=== PATIENT | female | born 1965 | race Caucasian/White ===

== ENCOUNTER 2021-03-03 12:39 | Emergency (ER) | payer OTHER, SELFPAY ==
[2021-03-03 12:55] VITALS: BP 126/73; BP 143/84; PULSE 114; PULSE 130; RESP 18; TEMP 37.6; O2SAT 96; O2SAT 99; BMI 24.2
--- NOTE | 2021-03-03 12:59 | ED.PSYCH ---
HPI - Psych General Chief Complaint: Psychiatric Symptoms Stated Complaint: SI Time Seen by Provider: 03/03/21 12:48 Source: patient and EMS Mode of arrival: EMS Limitations: no limitations History of Present Illness HPI Narrative: 55-year-old female with a past medical history of alcohol abuse, anxiety, depression, high cholesterol here with complaints of suicidal thoughts with no plan. Patient tells me she is drinking alcohol daily 10 nips today. Her last drink was yesterday. She left [facility] last week after a interpersonal conflict. Since then she has been drinking daily. She has discontinued all of her medications. She is currently homeless and living on the street. She tells me that her relationships with her family have been impaired due to her drinking. She is interested in getting sectioning and is speaking to her recovery team about this closely. She is also willing to going to detox but feels like a Section 35 would be more helpful for her. Denies additional substance use with the exception of rare cocaine use. Feeling very anxious. No other physical complaints. Related Data Allergies Allergy/AdvReac Type Severity Reaction Status Date / Time shellfish derived Allergy Mild unknown Verified 03/03/21 12:55 Review of Systems Review of Systems: Yes all other systems are reviewed and are negative Constitutional: Constitutional: Reports no additional constitutional complaints, Denies body ache(s), Denies chills, Denies fever(s), Denies headache(s) and Denies weakness Eyes: Eyes: Reports no additional eye complaints and Denies change in vision ENT: Reports system reviewed and no additional complaints, except as documented, Denies dizziness, Denies headache(s), Denies nasal congestion, Denies nasal discharge and Denies neck pain Cardiovascular: Cardiovascular: Reports no additional cardiovascular complaints, Denies chest pain, Denies leg edema and Denies dyspnea Respiratory: Respiratory: Reports no additional respiratory complaints, Denies cough and Denies dyspnea Gastrointestinal: Gastrointestinal: Reports no additional gastrointestinal complaints, Denies abdominal pain, Denies diarrhea, Denies nausea and Denies vomiting Genitourinary: Genitourinary: Reports no additional female genitourinary complaints and Denies urinary incontinence Musculoskeletal: Musculoskeletal: Reports no additional musculoskeletal complaints, Denies back pain, Denies arthralgias, Denies joint swelling, Denies neck pain, Denies numbness and Denies tingling Integumentary/Breasts: Skin/Breast: Reports system reviewed and no additional complaints, except as docu and Denies rash Neurologic: Reports system reviewed and no additional complaints, except as documented, Denies Abnormal speech present, Denies dizziness, Denies headache(s), Denies numbness, Denies tingling and Denies weakness Psychiatric: Psychiatric: Reports anxiety, Reports depression, Denies visual hallucinations, Denies hallucinations, Denies homicidal ideation and Reports suicidal ideation [facility] Past Medical History Attestation statement: The following information was validated with the patient. Source: old records reviewed and nursing notes reviewed Social History Social History Advance Directives: No Patient : No Physical Exam Vital Signs: Vital Signs: Last Vital Signs Temp 99.7 F 03/03/21 12:55 Pulse 117 H 03/03/21 19:53 Resp 18 03/03/21 12:55 BP 138/89 03/03/21 19:53 Pulse Ox 98 03/03/21 19:53 Body Mass Index 24.2 Const: General: cooperative and anxious Orientation/consciousness: patient oriented x3 Limitations: no limitations HENMT: Head: Yes normal to inspection Ears: hearing grossly normal bilaterally General nose exam: Normal external nose present Face and sinus: Yes normal facial exam Mouth: Normal oral and palatal mucosa present Throat: Yes posterior oropharynx normal Eyes: General: appearance normal, both eyes and all related structures Pupils: Equal, round and reactive pupils present Neck: Neck: Yes normal visual inspection Chest: Chest palpation & inspection: normal inspection of the chest Resp: Effort & Inspection: normal respiratory effort Auscultation: clear to auscultation bilaterally Cardio: Rate: tachycardic Rhythm: regular rhythm Peripheral pulses: Peripheral pulses 2+ throughout GI: Inspection: Yes normal to inspection Palpation (GI): Soft to palpation and nontender Auscultation: normal bowel sounds Back/Spine/Pelvis: Thoracic/Lumbar Spine: thoracic and lumbar spine normal to inspection Skin: General skin exam: no rashes or lesions noted Neuro: General: patient oriented x3, no focal motor deficits and normal sensation to monofilament Cranial nerves: Yes Equal, round and reactive pupils present Cognition (Neuro): normal cognition Speech: No Abnormal speech present Gait exam (Neuro): Normal gait present Motor exam (neuro): 5/5 motor strength present throughout Extrem: General: Yes normal to inspection Course Course Course Narrative: 55-year-old female here with complaints of anxiety, depression, suicidal thoughts but no plan. Drinking daily which she contributes to her suicidal thoughts. Seeking detox Will check labs, drug screen, EKG. Tachycardia but patient is very anxious. Will provide Ativan and reassess. No acute withdrawal at this time. 1945-patient was seen by [facility] and plan for discharge home. [facility]. She will be given detox resources. No suicidal ideations when I spoke to her. Reviewed worrisome signs and symptoms of when to return to the emergency department. Comfortable discharge home. [facility] - Psych Medical Records Attestation: I reviewed the patient's medical records. Lab Data Attestation: I reviewed the patient's lab results. Result diagrams: 03/03/21 14:56 03/03/21 14:56 Labs: Lab Results 03/03/21 03/03/21 03/03/21 Range/Units 14:56 14:56 14:56 WBC 13.9 H (4.8-10.8) X10*3/uL RBC 4.55 (4.20-5.50) X10*6/uL Hgb 12.2 (12.0-16.0) g/dl Hct 37.1 (37-47) % MCV 81.5 (80-98) fL MCH 26.8 L (27.0-33.0) pg MCHC 32.9 (31.0-35.0) g/dl RDW 16.9 H (11.0-16.0) % Plt Count 385 (160-400) X10*3/uL MPV 9.0 L (9.4-12.3) fL Immature Gran % (Auto) 0.4 (0.0-0.4) % Neut % (Auto) 85.6 H (45-73) % Lymph % (Auto) 9.9 L (20-40) % [place] % (Auto) 3.8 (2-11) % Eos % (Auto) 0.1 (0-4) % Baso % (Auto) 0.2 (0-2) % Lymph # (Auto) 1.4 (1.2-4.9) X10*3/uL [place] # (Auto) 0.5 (0.1-1.2) X10*3/uL Eos # (Auto) 0.0 (0.0-0.4) X10*3/uL Baso # (Auto) 0.0 (0.0-0.2) X10*3/uL Abs Immat Gran (auto) 0.06 H (0.00-0.03) X10*3/uL Absolute Neuts (auto) 11.9 H (2.0-8.3) X10*3/uL Absolute Nucleated RBC 0.000 (0.0-0.012) X10*3/uL Nucleated RBC % (auto) 0.0 (0.0-0.2) /100WBC Sodium 141 (135-145) mmol/L Potassium 4.4 (3.3-5.1) mmol/L Chloride 102 (96-108) mmol/L Carbon Dioxide 26 (22-29) mmol/L Anion Gap 17 (12-20) BUN 16 (9-16) mg/dL Creatinine 0.76 (0.5-1.4) mg/dL Estim Creat Clear Calc 65.4 Estimated GFR > 60 Random Glucose 107 (60-115) mg/dL Calcium 10.6 H (8.4-10.2) mg/dL Total Bilirubin (0.0-1.0) mg/dL Direct Bilirubin (0.0-0.5) mg/dL AST (5-31) U/L ALT (0-31) U/L Alkaline Phosphatase (39-117) U/L Total Protein (6.5-8.0) g/dL Albumin (3.5-5.0) g/dL Ethyl Alcohol mg/dL COVID-19 (RUI) Negative (Negative) COVID-19 Clin Com See Note 03/03/21 03/03/21 Range/Units 14:56 14:56 WBC (4.8-10.8) X10*3/uL RBC (4.20-5.50) X10*6/uL Hgb (12.0-16.0) g/dl Hct (37-47) % MCV (80-98) fL MCH (27.0-33.0) pg MCHC (31.0-35.0) g/dl RDW (11.0-16.0) % Plt Count (160-400) X10*3/uL MPV (9.4-12.3) fL Immature Gran % (Auto) (0.0-0.4) % Neut % (Auto) (45-73) % Lymph % (Auto) (20-40) % [place] % (Auto) (2-11) % Eos % (Auto) (0-4) % Baso % (Auto) (0-2) % Lymph # (Auto) (1.2-4.9) X10*3/uL [place] # (Auto) (0.1-1.2) X10*3/uL Eos # (Auto) (0.0-0.4) X10*3/uL Baso # (Auto) (0.0-0.2) X10*3/uL Abs Immat Gran (auto) (0.00-0.03) X10*3/uL Absolute Neuts (auto) (2.0-8.3) X10*3/uL Absolute Nucleated RBC (0.0-0.012) X10*3/uL Nucleated RBC % (auto) (0.0-0.2) /100WBC Sodium (135-145) mmol/L Potassium (3.3-5.1) mmol/L Chloride (96-108) mmol/L Carbon Dioxide (22-29) mmol/L Anion Gap (12-20) BUN (9-16) mg/dL Creatinine (0.5-1.4) mg/dL Estim Creat Clear Calc Estimated GFR Random Glucose (60-115) mg/dL Calcium (8.4-10.2) mg/dL Total Bilirubin 0.8 (0.0-1.0) mg/dL Direct Bilirubin 0.4 (0.0-0.5) mg/dL AST 32 H (5-31) U/L ALT 37 H (0-31) U/L Alkaline Phosphatase 122 H (39-117) U/L Total Protein 7.4 (6.5-8.0) g/dL Albumin 4.5 (3.5-5.0) g/dL Ethyl Alcohol < 10 mg/dL COVID-19 (RUI) (Negative) COVID-19 Clin Com Discharge Plan Discharge Clinical Impression: Depression, Acute anxiety, Alcohol abuse Patient Disposition: Home, Self-Care Instructions: Depression (ED), Abuse of Alcohol (ED), Anxiety (ED) Additional Instructions: Go direct to living room Interventions: ED Discharge Assessment Last Done: 03/03/21 20:02 Discharge Date/Time: 03/03/21 20:13
[2021-03-03] MEDS: LORazepam 1 MG TABLET PO (13:16)
--- NOTE | 2021-03-03 14:36 | MHC.RECOVSUP ---
Recovery Support note: Patient is a 55 year old [place] speaking female who presented to [facility] ED via EMS. This director underwriter sales met with patient to discuss substance use and treatment options. Patient reports she has been living on the streets and consuming 10 nips of alcohol a day. Patient reports struggling with anxiety, depression and grief. Patient reports SI thoughts with plan to overdose on medications. Patient reports she was discussing this with her assistant baseball coach and that she was instructed to present to [facility] for a psychiatric admission. Patient reports she did not know that she needed to go to the hospital for a psychiatric admission. Patient reports feelings of hopelessness. Patient stated I feel like everyone would be better off without me. Patient reports her Father in 1992, her in 2011 and her dog two weeks later. Patient reports she has been trying to see a psychiatrist and grief counselor for 6 months to a year. Patient reports she has been to detox before and that it is not the type of help she needs at this time. Patient reports she is seeking help for her mental health. Discussed case with CARE Team. Plan for patient to be evaluated by [facility].
[2021-03-03 15:05] LABS: Basophils Percent Auto 0.2 % (0-2); Eosinophils Percent Auto 0.1 % (0-4); Hematocrit 37.1 % (37-47); Hemoglobin 12.2 g/dl (12.0-16.0); Imm Gran Abs Auto 0.06 X10*3/uL (0.00-0.03); Imm Gran Pct Auto 0.4 % (0.0-0.4); Lymphocytes Absolute Auto 1.4 X10*3/uL (1.2-4.9); Lymphocytes Percent Auto 9.9 % (20-40); MANUAL DIFF FLAG NO; Mean Corpuscular HGB Conc 32.9 g/dl (31.0-35.0); Mean Corpuscular Hemoglobin 26.8 pg (27.0-33.0); Mean Corpuscular Volume 81.5 fL (80-98); Monocytes Absolute Auto 0.5 X10*3/uL (0.1-1.2); Monocytes Percent Auto 3.8 % (2-11); Neutrophils Absolute Auto 11.9 X10*3/uL (2.0-8.3); Neutrophils Percent Auto 85.6 % (45-73); Platelet Count 385 X10*3/uL (160-400); Red Blood Count 4.55 X10*6/uL (4.20-5.50); Red Cell Distribution Width 16.9 % (11.0-16.0); White Blood Count 13.9 X10*3/uL (4.8-10.8)
[2021-03-03 15:19] LABS: COVID-19 Test Negative (Negative)
[2021-03-03 15:20] LABS: Ethanol < 10 mg/dL
[2021-03-03 15:21] LABS: Alanine Aminotransferase 37 U/L (0-31); Albumin Level 4.5 g/dL (3.5-5.0); Alkaline Phosphatase 122 U/L (39-117); Aspartate Amino Transferase 32 U/L (5-31); Bilirubin Direct 0.4 mg/dL (0.0-0.5); Bilirubin Total 0.8 mg/dL (0.0-1.0); Total Protein 7.4 g/dL (6.5-8.0)
[2021-03-03 15:42] LABS: Anion Gap 17 (12-20); Blood Urea Nitrogen 16 mg/dL (9-16); Calcium 10.6 mg/dL (8.4-10.2); Carbon Dioxide 26 mmol/L (22-29); Chloride 102 mmol/L (96-108); Creatinine Clr Calc Pharmacy 65.4; Estimated Glomerular Filt Rate > 60; Glucose Random 107 mg/dL (60-115); Potassium 4.4 mmol/L (3.3-5.1); Sodium 141 mmol/L (135-145)
[2021-03-03 19:53] VITALS: BP 138/89; PULSE 117; O2SAT 98
== END 2021-03-03 20:13 | disposition home or self-care (01) ==
PROVIDERS: Nurse Practitioner Family; Emergency Provider Emergency Medicine; PCP Family Medicine
DX: F32.9 Major depressive disorder, single episode, unspecified (principal); F41.9 Anxiety disorder, unspecified; R45.851 Suicidal ideations; F10.10 Alcohol abuse, uncomplicated; Y90.0 Blood alcohol level of less than 20 mg/100 ml; Z20.822 Contact with and (suspected) exposure to COVID-19; E78.5 Hyperlipidemia, unspecified; Z91.14 Patient's other noncompliance with medication regimen; Z59.0 Homelessness
CPT/HCPCS: 36415; 80048; 80076; 82077; 85025; 87635; 99284; 99285

== ENCOUNTER 2021-10-15 08:21 | Outpatient (REF) | payer OTHER, SELFPAY ==
--- NOTE | ~2021-10-15 | MM_ITS ---
EXAMINATION: MM SCREENING DIGITAL BREAST TOMOSYNTHESIS, BILATERAL CLINICAL INFORMATION: Screening. Asymptomatic. Prior history benign right stereotactic biopsy 08/26/2016 (clip did not deploy). The lifetime risk of breast cancer based on the Tyrer-Cuzick Model is 5%. COMPARISON: Mammography: 03/20/2020, 05/14/2019, 04/27/2018 TECHNIQUE: Digital breast tomosynthesis is performed in both the craniocaudal and mediolateral oblique views along with computer-aided detection (CAD). Synthesized 2D images are generated from the tomosynthesis. Additional right CC view is provided. FINDINGS: There are scattered areas of fibroglandular density (ACR BI-RADS breast composition Category b). There are no significant masses, abnormal calcifications, or other abnormalities. There are scattered bilateral stable asymmetries similar to prior studies. No developing density or interval architectural changes. The axilla and skin contours are unremarkable. MM/MM tomosynthesis screening BI IMPRESSION: No mammographic evidence of malignancy. ASSESSMENT: BI-RADS 2: Benign RECOMMENDATION: Routine annual mammography screening. This patient's information was entered into a reminder system with a target due date for their next mammogram.
== END 2021-10-15 08:22 | disposition home or self-care (01) ==
LOC: HO.MAMMO 08:21
PROVIDERS: Visit Provider Internal Medicine
DX: Z12.31 Encounter for screening mammogram for malignant neoplasm of breast (principal)
CPT/HCPCS: 77063; 77067

== ENCOUNTER 2021-11-14 14:25 | Outpatient (REF) | payer OTHER, SELFPAY ==
[2021-11-14 16:34] LABS: MANUAL DIFF FLAG NO
[2021-11-14 16:39] LABS: Basophils Percent Auto 0.3 % (0-2); Eosinophils Absolute Auto 0.2 X10*3/uL (0.0-0.4); Eosinophils Percent Auto 2.2 % (0-4); Hematocrit 35.1 % (37.0-47.0); Hemoglobin 11.4 g/dl (12.0-16.0); Imm Gran Abs Auto 0.05 X10*3/uL (0.00-0.03); Imm Gran Pct Auto 0.6 % (0.0-0.4); Lymphocytes Absolute Auto 2.2 X10*3/uL (1.2-4.9); Lymphocytes Percent Auto 24.8 % (20-40); Mean Corpuscular HGB Conc 32.5 g/dl (31.0-35.0); Mean Corpuscular Hemoglobin 28.5 pg (27.0-33.0); Mean Corpuscular Volume 87.8 fL (80.0-98.0); Mean Platelet Volume 9.8 fL (9.4-12.3); Monocytes Absolute Auto 0.5 X10*3/uL (0.1-1.2); Monocytes Percent Auto 5.4 % (2-11); Neutrophils Percent Auto 66.7 % (45-73); Platelet Count 379 X10*3/uL (160-400); Red Cell Distribution Width 14.6 % (11.0-16.0)
[2021-11-14 17:22] LABS: Alanine Aminotransferase 18 U/L (0-31); Albumin Level 4.4 g/dL (3.5-5.0); Alkaline Phosphatase 85 U/L (39-117); Anion Gap 13 (12-20); Aspartate Amino Transferase 19 U/L (5-31); Bilirubin Total 0.2 mg/dL (0.0-1.0); Blood Urea Nitrogen 18 mg/dL (9-16); Calcium 10.2 mg/dL (8.4-10.2); Carbon Dioxide 24 mmol/L (22-29); Chloride 106 mmol/L (96-108); Estimated Glomerular Filt Rate 60; Glucose Random 126 mg/dL (60-115); Potassium 4.4 mmol/L (3.3-5.1); Sodium 139 mmol/L (135-145); Total Protein 7.5 g/dL (6.5-8.0)
[2021-11-14 17:34] LABS: Gamma Glutamyl Transpeptidase 21 U/L (7-33)
[2021-11-15 06:21] LABS: HIV AB/AG Nonreactive (Nonreactive); HIV Num 1 0.07 S/CO (0.00-0.99); ~HepC Num1 10.61 S/CO (0.00-0.79); ~Hepatitis C Antibody Reactive (Nonreactive)
[2021-11-16 05:11] LABS: Hepatitis A Antibody IgG Nonreactive (Nonreactive); ~Hepatitis A Antibody IgG 0.83 S/CO (0.00-0.99)
[2021-11-18 23:26] LABS: HCV RNA PCR Qn <1.18 NOT DETECTED Log IU/mL (NOT DETECTED); HCV RNA PCR Qn <15 NOT DETECTED IU/mL (NOT DETECTED)
== END 2021-11-14 14:26 | disposition home or self-care (01) ==
LOC: HO.HMGCLDS 14:25
PROVIDERS: Visit Provider Registered Nurse
DX: Z11.4 Encounter for screening for human immunodeficiency virus [HIV] (principal); F11.20 Opioid dependence, uncomplicated
CPT/HCPCS: 36415; 80053; 82977; 85025; 86708; 86803; 87389; 87522; 87902

== ENCOUNTER 2021-11-22 19:55 | Emergency (ER) | payer OTHER, SELFPAY ==
--- NOTE | ~2021-11-22 | CT_ITS ---
EXAMINATION: CT ABDOMEN AND PELVIS WITHOUT CONTRAST CLINICAL INFORMATION: Pain to abdominal hernia COMPARISON: None TECHNIQUE: Multidetector volumetric imaging was performed from the superior aspect of the liver through the pubic symphysis. Sagittal and coronal reformatted images were obtained on the technologist's workstation. This CT examination was performed using dose optimization techniques as appropriate, variously including the following: *Automated exposure control *Adjustment of mA and/or kV according to patient size (this includes techniques or standardized protocols for targeted exams where dose is matched to indication/reason for exam; i.e. extremities or head) *Use of iterative reconstruction technique DLP: 447 mGy-cm FINDINGS: The lack of intravenous contrast limits evaluation of the solid visceral organs including the liver, spleen, pancreas, and kidneys. LUNG BASES: Heart size upper limits of normal. Mild bibasilar atelectasis. No focal consolidation. Trace pericardial fluid. No pleural effusion. LIVER, GALLBLADDER, AND BILIARY TREE: Limited non-contrast evaluation is normal. No gross focal hepatic lesion. Normal liver size and contour. No gross biliary ductal dilation. The gallbladder is unremarkable with no evidence of radiopaque gallstones, gallbladder wall thickening, or obvious pericholecystic inflammatory changes. PANCREAS: Limited non-contrast evaluation is normal. No agnieszka-pancreatic fluid. SPLEEN: Limited non-contrast evaluation is normal. ADRENAL GLANDS: Normal; no adrenal mass. KIDNEYS AND URETERS: Limited non-contrast evaluation is normal. No hydronephrosis, hydroureter, or calculi seen. No perinephric stranding. GASTROINTESTINAL TRACT: Small bowel and colon are non-dilated. No bowel wall thickening. No pericolonic inflammatory changes to suggest colitis or diverticulitis. No evidence of appendicitis. ABDOMINAL WALL: Tiny fat-containing umbilical hernia. There are several areas of abnormality in the buttocks. There is lobular fluid density in the left buttock measuring 3.6 x 2.8 cm. Medial to this there is a coarse calcification. In the right buttock there is an irregular area of fluid, fat stranding, gas and high density material. No IV contrast was administered so this does not represent extravasated IV contrast. LYMPH NODES: No pathologically enlarged lymph nodes in the abdomen or pelvis. VASCULAR: Normal caliber aorta with moderate nearly circumferential calcified atherosclerotic changes. BLADDER: Unremarkable. PELVIC VISCERA: Normal noncontrast appearance of the uterus and ovaries. OSSEOUS STRUCTURES: No acute or suspicious osseous abnormalities. CT/CT abdomen pelvis wo con IMPRESSION: There are multiple findings in the bilateral buttocks, nonspecific. There is fluid and calcification in the left buttock with an irregular area of fluid, gas, and high density material in the right buttock. These findings could be seen in the setting of subcutaneous injections with a recent injection of the right buttock accounting for the gas. Alternatively, trauma could be considered. The right gluteal gas does not have the expected appearance for infection but infection cannot be excluded. The findings and recommendations were discussed with CLOVER Burnett MD by telephone at 11/22/2021 11:27 PM and it was ascertained that the content and urgency of the report was understood at the time of direct communication.
[2021-11-22 19:58] VITALS: BP 130/80; PULSE 96; O2SAT 95
[2021-11-22 20:08] VITALS: BP 90/65; PULSE 91; RESP 18; TEMP 36.9; O2SAT 95; BMI 26.9
--- NOTE | 2021-11-22 21:23 | ED_ITS ---
HPI - Alcohol General Chief Complaint: ETOH/Substance Use <CLOVER Burnett - Last Filed: 11/23/21 01:11> Stated Complaint: ETOH <CLOVER Burnett Last Filed: 11/23/21 01:11> Time Seen by Provider: 11/22/21 21:23 <CLOVER Burnett Last Filed: 11/23/21 01:11> Source: patient <CLOVER Burnett - Last Filed: 11/23/21 01:11> Mode of arrival: ambulatory <CLOVER Burnett Last Filed: 11/23/21 01:11> Limitations: no limitations <CLOVER Burnett Last Filed: 11/23/21 01:11> History of Present Illness HPI narrative: This is a 56-year-old female history of alcohol abuse presenting to the emergency department with acute alcohol intoxication, patient tells me that she was recently at the [facility] in [place] which is a recovery house. Patient tells me that she left she had 6 nips of fireball today, and relapse. Patient is requesting that she go back to the house. She tells me she spoke to the house was willing to take her back after she gets medically cleared. Patient tells me she has a known abdominal hernia that has been bothering her for the past 2-3 days that she would like evaluated. Patient tells me she denies chest pain, shortness of breath, fevers, chills, nausea, vomiting, weakness, headache, dizziness. No recent trauma. <CLOVER Burnett Last Filed: 11/23/21 01:11> MD complaint: alcohol intoxication, alcohol dependence and desires rehab <CLOVER Burnett Last Filed: 11/23/21 01:11> Last drink: Just prior to admission <CLOVER Burnett Last Filed: 11/23/21 01:11> Chronic alcohol use: Yes <CLOVER Burnett Last Filed: 11/23/21 01:11> Previous visits for alcohol intoxication: No <CLOVER Burnett Last Filed: 11/23/21 01:11> Recent trauma: Yes <CLOVER Burnett Last Filed: 11/23/21 01:11> Associated symptoms: denies other symptoms <CLOVER Burnett Last Filed: 11/23/21 01:11> Treatments prior to arrival: none <CLOVER Burnett Last Filed: 11/23/21 01:11> Related Data Allergies/Adverse Reactions: Allergies Allergy/AdvReac Type Severity Reaction Status Date / Time shellfish derived Allergy Mild unknown Verified 11/22/21 20:07 <CLOVER Burnett Last Filed: 11/23/21 01:11> Review of Systems Review of Systems: Constitutional : No Weight loss, No Fever, No Chills, No Fatigue, No Malaise ENT/Mouth : No sore throat, No Rhinorrhea Eyes: No Eye Pain, No Swelling, No Redness Cardiovascular : No Chest Pain, No SOB, No Dyspnea on Exertion, No Orthopnea, No Edema, No Palpitations Respiratory : No Cough, No Sputum, No Wheezing Gastrointestinal : No Nausea, No Vomiting, No Diarrhea, No Constipation, No a bdominal Pain, No Hematochezia, No Melena Genitourinary : No Dysuria, No Urinary Frequency, No Hematuria, Musculoskeletal : No joint pain, No Myalgias, No Joint Swelling Skin : No Skin Lesions, No rash Neuro : No Weakness, No Numbness, No Dizziness, No Headache Psych : No Anxiety/Panic, No Depression All other systems reviewed and are negative <CLOVER Burnett Last Filed: 11/23/21 01:11> Yes all other systems are reviewed and are negative <CLOVER Burnett - Last Filed: 11/23/21 01:11> [facility] Past Medical History Attestation statement: The following information was validated with the patient. <CLOVER Burnett Last Filed: 11/23/21 01:11> Source: old records reviewed and nursing notes reviewed <CLOVER Burnett Last Filed: 11/23/21 01:11> Social History Social History: Social History Advance Directives: No Advance Directives Information Provided: No <CLOVER Burnett - Last Filed: 11/23/21 01:11> Physical Exam ED Vital Signs: Vital Signs - 24 hr 11/22/21 20:08 11/22/21 22:00 11/22/21 23:48 Temperature 98.5 F 97.8 F 97.0 F Pulse Rate 91 72 64 Respiratory Rate 18 16 16 Blood Pressure 90/65 110/56 L 109/70 Pulse Oximetry 95 98 97 BMI result Body Mass Index 26.9 Vital signs stable <CLOVER Burnett Last Filed: 11/23/21 01:11> Appearance: Alert.? Oriented X3.? No acute distress.? Head: Normocephalic, atraumatic, no step-offs or deformities Eyes: Pupils equal, round and reactive to light.? ENT: Pharynx normal.? No tongue fasciculations. Neck: Normal inspection.? Neck supple.? CVS: Normal heart rate and rhythm.? Pulses normal.? Respiratory: No respiratory distress.? Breath sounds normal.? Abdomen: Soft and nontender.? Skin: Skin warm and dry.? Normal skin color.? Normal skin turgor.? Buttocks: bilateral buttocks within normal limits, no overlying skin changes, no pain with palpation, no crepitus noted, no erythema or ecchymosis. There is a Band-Aid applied to the right buttocks were patient received her Vivitrol injection yesterday. Extremities: No lower extremity edema.? No calf ttp. 5/5 strength to bilateral upper and lower extremities. No asterixis. No resting tremors. Back: No midline tenderness, no C-spine tenderness, full range of motion, no CVA tenderness bilaterally Neuro: Oriented X 3.? No motor deficit.? No sensory deficit. CN 2-12 intact <CLOVER Burnett Last Filed: 11/23/21 01:11> Course Reevaluation(s) Reevaluation #1: CBC appears to be around patient's baseline. Chemistry with no acute findings. Ethanol level 153. COVID negative. CT of the abdomen and pelvis with nonspecific findings in the biotics, others fluid and calcifications in the left buttocks with an irregular area of fluid, gas and high density material in the right buttocks. Patient tells me that she receives Vivitrol shots, her last 1 was yesterday. No overlying redness, swelling or crepitus to the area. I do not suspect infection at this time. Discussed w/ Dr. Roberto who agrees with this is likely secondary to Vivitrol injections. <CLOVER Burnett - Last Filed: 11/23/21 01:11> Time: 01:02 <CLOVER Burnett - Last Filed: 11/23/21 01:11> Reevaluation #2: Patient has not given us a urine sample however despite these urine is else at this time patient has been medically cleared and she can return back to [facility]. Advised patient to return with new or worsening symptoms. Outlined he is on her discharge. Comfortable discharge home. Time of discharge patient awake, alert and oriented x4, no acute distress, stable vital signs, appears comfortable and in no acute distress. She has no medical complaints denies chest pain, shortness of breath, headache, dizziness, vision changes. <CLOVER Burnett - Last Filed: 11/23/21 01:11> Time: 01:07 <CLOVER Burnett - Last Filed: 11/23/21 01:11> MDM - Alcohol MDM Narrative Medical decision making narrative: [id number] 56-year-old female presents to the emergency department requesting to go to [facility] in [place], she was recently discharged from there and she called and she would like to go back. They tell her that they have a bed for her. Here for medical clearance. Reports drinking shots prior to arrival. Physical examination benign. No signs of autonomic dysfunction, no signs of hepatic encephalopathy. Patient's smells like alcohol however. Regular rate and rhythm. Lungs clear. Abdomen soft nontender nondistended. Neuro exam is nonfocal. Plan at this time is medical clearance. Patient does report pain to hernia she says it has been going on for 2-3 days will obtain a CT of the abdomen and pelvis to rule out incarceration although unlikely from physical exam findings. <CLOVER Burnett Last Filed: 11/23/21 01:11> Medical Records Attestation: I reviewed the patient's medical records. <CLOVER Burnett - Last Filed: 11/23/21 01:11> Lab Data Attestation: I reviewed the patient's lab results. <CLOVER Burnett - Last Filed: 11/23/21 01:11> Result diagrams: : 11/22/21 21:57 11/22/21 21:57 <CLOVER Burnett - Last Filed: 11/23/21 01:11> Labs: Lab Results 11/22/21 11/22/21 11/22/21 Range/Units 21:57 21:57 21:57 WBC 7.0 (4.8-10.8) X10*3/uL RBC 4.04 L (4.20-5.50) X10*6/uL Hgb 11.7 L (12.0-16.0) g/dl Hct 34.9 L (37.0-47.0) % MCV 86.4 (80.0-98.0) fL MCH 29.0 (27.0-33.0) pg MCHC 33.5 (31.0-35.0) g/dl RDW 14.2 (11.0-16.0) % Plt Count 361 (160-400) X10*3/uL MPV 8.9 L (9.4-12.3) fL Immature Gran % (Auto) 0.3 (0.0-0.4) % Neut % (Auto) 56.7 (45-73) % Lymph % (Auto) 36.4 (20-40) % [place] % (Auto) 5.0 (2-11) % Eos % (Auto) 1.0 (0-4) % Baso % (Auto) 0.6 (0-2) % Lymph # (Auto) 2.5 (1.2-4.9) X10*3/uL [place] # (Auto) 0.4 (0.1-1.2) X10*3/uL Eos # (Auto) 0.1 (0.0-0.4) X10*3/uL Baso # (Auto) 0.0 (0.0-0.2) X10*3/uL Abs Immat Gran (auto) 0.02 (0.00-0.03) X10*3/uL Absolute Neuts (auto) 4.0 (2.0-8.3) x10*3/uL Absolute Nucleated RBC 0.000 (0.0-0.012) X10*3/uL Nucleated RBC % (auto) 0.0 (0.0-0.2) /100WBC Sodium 142 (135-145) mmol/L Potassium 3.9 (3.3-5.1) mmol/L Chloride 108 (96-108) mmol/L Carbon Dioxide 21 L (22-29) mmol/L Anion Gap 17 (12-20) BUN 9 (9-16) mg/dL Creatinine 0.84 (0.5-1.4) mg/dL Estim Creat Clear Calc 61.0 Estimated GFR > 60 Random Glucose 102 (60-115) mg/dL Calcium 9.5 D (8.4-10.2) mg/dL Total Bilirubin 0.2 (0.0-1.0) mg/dL AST 21 (5-31) U/L ALT 18 (0-31) U/L Alkaline Phosphatase 77 (39-117) U/L Total Protein 7.5 (6.5-8.0) g/dL Albumin 4.5 (3.5-5.0) g/dL Lipase 62 (8-78) U/L Ethyl Alcohol mg/dL COVID-19 (RUI) Negative (Negative) COVID-19 Clin Com See Note 11/22/21 Range/Units 21:57 WBC (4.8-10.8) X10*3/uL RBC (4.20-5.50) X10*6/uL Hgb (12.0-16.0) g/dl Hct (37.0-47.0) % MCV (80.0-98.0) fL MCH (27.0-33.0) pg MCHC (31.0-35.0) g/dl RDW (11.0-16.0) % Plt Count (160-400) X10*3/uL MPV (9.4-12.3) fL Immature Gran % (Auto) (0.0-0.4) % Neut % (Auto) (45-73) % Lymph % (Auto) (20-40) % [place] % (Auto) (2-11) % Eos % (Auto) (0-4) % Baso % (Auto) (0-2) % Lymph # (Auto) (1.2-4.9) X10*3/uL [place] # (Auto) (0.1-1.2) X10*3/uL Eos # (Auto) (0.0-0.4) X10*3/uL Baso # (Auto) (0.0-0.2) X10*3/uL Abs Immat Gran (auto) (0.00-0.03) X10*3/uL Absolute Neuts (auto) (2.0-8.3) x10*3/uL Absolute Nucleated RBC (0.0-0.012) X10*3/uL Nucleated RBC % (auto) (0.0-0.2) /100WBC Sodium (135-145) mmol/L Potassium (3.3-5.1) mmol/L Chloride (96-108) mmol/L Carbon Dioxide (22-29) mmol/L Anion Gap (12-20) BUN (9-16) mg/dL Creatinine (0.5-1.4) mg/dL Estim Creat Clear Calc Estimated GFR Random Glucose (60-115) mg/dL Calcium (8.4-10.2) mg/dL Total Bilirubin (0.0-1.0) mg/dL AST (5-31) U/L ALT (0-31) U/L Alkaline Phosphatase (39-117) U/L Total Protein (6.5-8.0) g/dL Albumin (3.5-5.0) g/dL Lipase (8-78) U/L Ethyl Alcohol 153 mg/dL COVID-19 (RUI) (Negative) COVID-19 Clin Com <CLOVER Burnett - Last Filed: 11/23/21 01:11> Critical Care Time Critical Care Time Critical Care Time: No <CLOVER Burnett - Last Filed: 11/23/21 01:11> Discharge Plan Discharge Clinical Impression: Alcoholic intoxication, Abdominal pain <CLOVER Burnett Last Filed: 11/23/21 01:11> Patient Disposition: Home, Self-Care <CLOVER Burnett Last Filed: 11/23/21 01:11> Instructions: Alcohol Intoxication (ED), Abdominal Pain (ED), Alcohol Use Disorder (ED) <CLOVER Burnett - Last Filed: 11/23/21 01:11> Additional Instructions: Take your medications as prescribed. If you were prescribed antibiotics today, it is important that you take your medication to their entirety, do not skip any doses, do not finish them early. Follow-up with your primary care provider this week. Return to the emergency department with new or worsening symptoms. Such as fevers, chills, chest pain, shortness of breath, nausea, vomiting, dizziness, headache, vision changes, lethargy, pain or swelling care buttock. In case of emergency call 911 At this time patient medically cleared. Advised to return with new or worsening symptoms. CT/CT abdomen pelvis wo con IMPRESSION: There are multiple findings in the bilateral buttocks, nonspecific. There is fluid and calcification in the left buttock with an irregular area of fluid, gas, and high density material in the right buttock. These findings could be seen in the setting of subcutaneous injections with a recent injection of the right buttock accounting for the gas. Alternatively, trauma could be considered. The right gluteal gas does not have the expected appearance for infection but infection cannot be excluded. <CLOVER Burnett - Last Filed: 11/23/21 01:11> Referrals: Physician,Ben J [Primary Care Provider] - 2 days <CLOVER Burnett - Last Filed: 11/23/21 01:11> Interventions: ED Discharge Assessment Last Done: 11/23/21 01:47 <CLOVER Burnett - Last Filed: 11/23/21 01:11> Discharge Date/Time: 11/23/21 01:47 <CLOVER Burnett - Last Filed: 11/23/21 01:11>
[2021-11-22 22:00] VITALS: BP 110/56; PULSE 72; RESP 16; TEMP 36.6; O2SAT 98
[2021-11-22 22:02] LABS: MANUAL DIFF FLAG NO
[2021-11-22 22:03] LABS: Basophils Percent Auto 0.6 % (0-2); Eosinophils Absolute Auto 0.1 X10*3/uL (0.0-0.4); Hematocrit 34.9 % (37.0-47.0); Hemoglobin 11.7 g/dl (12.0-16.0); Imm Gran Abs Auto 0.02 X10*3/uL (0.00-0.03); Imm Gran Pct Auto 0.3 % (0.0-0.4); Lymphocytes Absolute Auto 2.5 X10*3/uL (1.2-4.9); Lymphocytes Percent Auto 36.4 % (20-40); Mean Corpuscular HGB Conc 33.5 g/dl (31.0-35.0); Mean Corpuscular Volume 86.4 fL (80.0-98.0); Mean Platelet Volume 8.9 fL (9.4-12.3); Monocytes Absolute Auto 0.4 X10*3/uL (0.1-1.2); Neutrophils Percent Auto 56.7 % (45-73); Platelet Count 361 X10*3/uL (160-400); Red Blood Count 4.04 X10*6/uL (4.20-5.50); Red Cell Distribution Width 14.2 % (11.0-16.0)
[2021-11-22 22:17] LABS: COVID-19 Test Negative (Negative)
[2021-11-22 22:21] LABS: Ethanol 153 mg/dL
[2021-11-22 22:25] LABS: Alanine Aminotransferase 18 U/L (0-31); Albumin Level 4.5 g/dL (3.5-5.0); Alkaline Phosphatase 77 U/L (39-117); Anion Gap 17 (12-20); Aspartate Amino Transferase 21 U/L (5-31); Bilirubin Total 0.2 mg/dL (0.0-1.0); Blood Urea Nitrogen 9 mg/dL (9-16); Calcium 9.5 mg/dL (8.4-10.2); Carbon Dioxide 21 mmol/L (22-29); Chloride 108 mmol/L (96-108); Estimated Glomerular Filt Rate > 60; Glucose Random 102 mg/dL (60-115); Potassium 3.9 mmol/L (3.3-5.1); Sodium 142 mmol/L (135-145); Total Protein 7.5 g/dL (6.5-8.0)
[2021-11-22 23:48] VITALS: BP 109/70; PULSE 64; RESP 16; TEMP 36.1; O2SAT 97
[2021-11-23 01:23] LABS: Lipase 62 U/L (8-78)
--- NOTE | 2021-11-23 01:46 | PC.NURSE ---
Discharged pt to [facility] transport to [facility]. Throughout her ER visit she remained asleep, wakeful to verbal stimuli, oriented x 3 while awake. SHe took PO food and fluids without difficulty and ambulated to and from the bathroom independently and with steady gait.
== END 2021-11-23 01:47 | disposition home or self-care (01) ==
PROVIDERS: Physician Assistant; Emergency Provider Emergency Medicine
DX: F10.129 Alcohol abuse with intoxication, unspecified (principal); Y90.6 Blood alcohol level of 120-199 mg/100 ml; R10.9 Unspecified abdominal pain; Z20.822 Contact with and (suspected) exposure to COVID-19
CPT/HCPCS: 74176; 80053; 82077; 83690; 85025; 87635; 99282; 99284

== ENCOUNTER 2022-01-09 15:30 | Emergency (ER) | payer OTHER, SELFPAY ==
--- NOTE | 2022-01-09 16:05 | PC.NURSE ---
called x 3 in wr and outside. no answer. LWT
== END 2022-01-09 16:14 | disposition left against medical advice (07) ==
PROVIDERS: Emergency Provider Emergency Medicine
DX: Z02.83 Encounter for blood-alcohol and blood-drug test (principal)

== ENCOUNTER 2022-01-09 17:48 | Emergency (ER) | payer OTHER, SELFPAY ==
[2022-01-09 17:53] VITALS: BP 128/73; PULSE 116; RESP 18; TEMP 37.1; O2SAT 94; BMI 29.2
--- NOTE | 2022-01-09 17:56 | PC.NURSE ---
pt states HR is due to anxiety. Denies CP/SOB/Diff breathing/ feeling of near syncope.
--- NOTE | 2022-01-09 18:03 | ECG_ITS ---
Test Reason : TACHYCARDIA Blood Pressure : / mmHG Vent. Rate : 109 BPM Atrial Rate : 109 BPM P-R Int : 148 ms QRS Dur : 080 ms QT Int : 338 ms P-R-T Axes : 072 076 054 degrees QTc Int : 455 ms Sinus tachycardia Otherwise normal ECG No previous ECGs available Referred By: Generic ED Physician Electronically Signed By:Reddy Gallagher
--- NOTE | 2022-01-09 18:12 | PC.NURSE ---
PT keeps leaving ed to go outside. Multiple attempts have been made to draw labs.
[2022-01-09 18:34] LABS: MANUAL DIFF FLAG NO
[2022-01-09 18:35] LABS: Basophils Absolute Auto 0.1 X10*3/uL (0.0-0.2); Basophils Percent Auto 0.6 % (0-2); Eosinophils Absolute Auto 0.1 X10*3/uL (0.0-0.4); Eosinophils Percent Auto 1.1 % (0-4); Hematocrit 39.7 % (37.0-47.0); Hemoglobin 13.2 g/dl (12.0-16.0); Imm Gran Abs Auto 0.04 X10*3/uL (0.00-0.03); Imm Gran Pct Auto 0.4 % (0.0-0.4); Lymphocytes Percent Auto 33.2 % (20-40); Mean Corpuscular HGB Conc 33.2 g/dl (31.0-35.0); Mean Corpuscular Hemoglobin 28.9 pg (27.0-33.0); Mean Corpuscular Volume 86.9 fL (80.0-98.0); Mean Platelet Volume 9.4 fL (9.4-12.3); Monocytes Absolute Auto 0.5 X10*3/uL (0.1-1.2); Monocytes Percent Auto 5.2 % (2-11); Neutrophils Absolute Auto 5.4 x10*3/uL (2.0-8.3); Neutrophils Percent Auto 59.5 % (45-73); Platelet Count 453 X10*3/uL (160-400); Red Blood Count 4.57 X10*6/uL (4.20-5.50); Red Cell Distribution Width 13.4 % (11.0-16.0); White Blood Count 9.1 X10*3/uL (4.8-10.8)
[2022-01-09 18:43] LABS: Appearance Urine CLEAR; Color Urine YELLOW; Glucose Urine UA NEG (NEG); Leukocyte Esterase Urine 1+ (NEG); Nitrite Urine NEG (NEG); Specific Gravity - Urine <= 1.005 (1.005-1.025); UACC Culture Trigger YES; Urine Blood NEG (NEG); Urine Ketones NEG (NEG); Urine Protein NEG (NEG-TRACE)
[2022-01-09 18:44] LABS: UPreg QC Valid YES; Urine Pregnancy NEGATIVE (NEGATIVE)
[2022-01-09 18:52] LABS: Alanine Aminotransferase 61 U/L (0-31); Albumin Level 5.2 g/dL (3.5-5.0); Alkaline Phosphatase 87 U/L (39-117); Amphetamine Screen Urine Not Detected (Not Detect); Anion Gap 15 (12-20); Aspartate Amino Transferase 55 U/L (5-31); Barbiturates, Urine Not Detected (Not Detect); Benzodiazepines Screen Urine Not Detected (Not Detect); Bilirubin Total 0.2 mg/dL (0.0-1.0); Blood Urea Nitrogen 10 mg/dL (9-16); COVID-19 Test Negative (Negative); Cannabinoid Screen Urine Not Detected (Not Detect); Carbon Dioxide 26 mmol/L (22-29); Chloride 108 mmol/L (96-108); Cocaine Screen Urine Not Detected (Not Detect); Creatinine Clr Calc Pharmacy 53.4; Estimated Glomerular Filt Rate 57; Ethanol 199 mg/dL; Fentanyl, urine Not Detected (Not Detect); Glucose Random 112 mg/dL (60-115); Opiate Screen Urine Not Detected (Not Detect); Phencyclidine Screen Urine Not Detected (Not Detect); Potassium 4.2 mmol/L (3.3-5.1); Sodium 145 mmol/L (135-145); Total Protein 8.3 g/dL (6.5-8.0)
[2022-01-09 18:56] LABS: WBC Urine 0-2 /HPF (0-4)
[2022-01-09 18:57] LABS: RBC Urine 0-2 /HPF (0); Squamous Epithelial Cell Urine TRACE /LPF
[2022-01-09 18:59] LABS: Bacteria Urine TRACE /LPF
== END 2022-01-09 22:16 | disposition left against medical advice (07) ==
PROVIDERS: Emergency Provider Emergency Medicine
DX: R00.0 Tachycardia, unspecified (principal); R79.89 Other specified abnormal findings of blood chemistry; Z20.822 Contact with and (suspected) exposure to COVID-19; Z79.899 Other long term (current) drug therapy
CPT/HCPCS: 80053; 80307; 81001; 81025; 82077; 85025; 87086; 87635; 93005; 99283

== ENCOUNTER 2022-03-11 17:27 | Emergency (ER) | payer OTHER, SELFPAY ==
--- NOTE | 2022-03-11 17:45 | ED_ITS ---
HPI - Overdose General Chief Complaint: Overdose Stated Complaint: HEROIN OD Source: patient and EMS Mode of arrival: EMS Limitations: no limitations History of Present Illness HPI Narrative: 56-year-old female presents via EMS for overdose. Stated this is the 1st time she has ever used heroin, lost consciousness, and her friend administered Narcan and called 911. Patient does not have a prior history of heroin use, states that she is not suicidal or homicidal. She is not interested in detox at this time, and states to have no medical complaints at this time. complaint: accidental overdose Onset (ago): hour(s) (Within the hour of arrival) Context: Accidental Overdose: wanted to get high Associated symptoms: depression Treatments Prior to Arrival: narcan Related Data Allergies Allergy/AdvReac Type Severity Reaction Status Date / Time shellfish derived Allergy Mild unknown Verified 11/22/21 20:07 Review of Systems Review of Systems: Constitutional: No Fever, No Chills ENT/Mouth: No Ear Pain, No Hoarseness, No sore throat Eyes: No Eye Pain, No Swelling, No Redness, No Foreign Body Cardiovascular: No Chest Pain, No SOB Respiratory: No Cough, No Dyspnea Gastrointestinal: No Nausea, No Vomiting, No Diarrhea, No abdominal Pain Genitourinary: No Dysuria, No Hematuria Musculoskeletal: No joint pain, No Myalgias, No Joint Swelling Skin: No Skin lacerations, No rash Neuro: No Weakness, No Numbness, No Paresthesias, No Loss of Consciousness, No Dizziness, No Headache Psych: Positive heroin overdose, No Anxiety/Panic, positive Depression Heme/Lymph: no easy bruising, no Lymphadenopathy Endocrine: No Polyuria, No Polydipsia Yes all other systems are reviewed and are negative FOR[facility]LY [facility] Past Medical History Attestation statement: The following information was validated with the patient. Source: old records reviewed Social History Social History Advance Directives: No Advance Directives Information Provided: No Physical Exam Vital Signs: Vital Signs: Last Vital Signs Temp 97.2 F 03/11/22 19:58 Pulse 68 03/11/22 19:58 Resp 16 03/11/22 19:58 BP 111/62 03/11/22 19:58 Pulse Ox 98 03/11/22 19:58 O2 Del Method 03/11/22 19:58 BMI result Body Mass Index 23.4 Appearance: Alert. Oriented X3. No acute distress. Eyes: Pupils equal, round and reactive to light. ENT: Pharynx normal. Neck: Normal inspection. Neck supple. CVS: Normal heart rate and rhythm. Pulses normal. Respiratory: No respiratory distress. Breath sounds normal. Abdomen: Soft and nontender. Skin: Skin warm and dry. Normal skin color. Normal skin turgor. Extremities: No lower extremity edema. Moves all extremities against resistance. Neuro: No motor deficit. No sensory deficit. Cranial nerves 2-12 intact. Course Course Course Narrative: 56-year-old female presents via EMS for heroin overdose, was given Narcan prior to arrival by a bystander. Patient states that this is the 1st time she has ever used heroin, was not trying to overdose, and has not been drinking alcohol. She does have a history of EtOH abuse and anxiety. Patient is alert oriented x4, answering questions politely and appropriately, denies suicidal and homicidal ideations, and following directions. Patient is not interested in detox. 17:35 patient states that she is doing well, is still tired, would like to sleep a bit more. Even unlabored respirations, answering questions politely and appropriately, arousable to verbal stimulation. 18:50 care team consult, plan of care is to discharge home as patient is not suicidal, homicidal, and is not interested in detox. Will discharge home with Narcan. Patient continues to be alert oriented x4, answering questions politely and appropriately, even unlabored respirations, able to follow directions without difficulty. Patient verbalized understanding of and agrees to plan of care. Verbalized understanding of signs symptoms indicating need for emergent intervention. MDM - Overdose Differential Diagnosis Differential diagnosis: Likely drug overdose Medical Records Attestation: I reviewed the patient's medical records. Discharge Plan Discharge Clinical Impression: Drug overdose Patient Disposition: Home, Self-Care Instructions: Adult Overdose (ED) Additional Instructions: Please consider detox. Thank you for choosing this emergency department for evaluation. Please follow-up with primary care physician as needed. Return to the emergency dep artment for any new, concerning, or worsening symptoms. Interventions: ED Discharge Assessment Last Done: 03/11/22 20:03 Discharge Date/Time: 03/11/22 20:04
[2022-03-11 18:19] VITALS: BP 110/64; PULSE 89; O2SAT 98; BMI 23.4
--- NOTE | 2022-03-11 19:29 | MHC.CARE ---
CARE Team offers pt a SUDE. Pt declines SUDE but does briefly engage with CARE Team. Pt states that she used heroin for the first time today, intranasally. She states it was so stupid and I'll never do it again. Pt is advised to start small and go slow if experimenting with substances in the future that she does not have a tolerance for. Pt declines offers for recovery resources, but agrees to receive nasal narcan at d/c. Recommendations provided to Ana Paz NP.
[2022-03-11] MEDS: Naloxone HCl Nasal TAKE HOME 4 MG SPRAY NOSTRILALT (19:50)
[2022-03-11 19:58] VITALS: BP 111/62; PULSE 68; RESP 16; TEMP 36.2; O2SAT 98
== END 2022-03-11 20:04 | disposition home or self-care (01) ==
PROVIDERS: Emergency Provider Emergency Medicine Emergency Medical Services
DX: T40.1X1A Poisoning by heroin, accidental (unintentional), initial encounter (principal); R40.20 Unspecified coma; Y92.9 Unspecified place or not applicable; F32.A Depression, unspecified; F41.9 Anxiety disorder, unspecified; F10.10 Alcohol abuse, uncomplicated; Y90.9 Presence of alcohol in blood, level not specified
CPT/HCPCS: 99284

== ENCOUNTER 2024-08-03 13:57 | Outpatient (AMB) | payer OTHER, SELFPAY ==
--- NOTE | 2024-08-03 14:10 | A.OFFVIS_ITS ---
Vital Signs 08/03/24 14:12 Height 5 ft Weight 118 lb 6 oz BMI 23.1 BP 122/84 Blood Pressure Location Lt brachial Position Sitting Pulse 88 Pulse Source Pulse Oximeter Pulse Oximetry (%) 98 Oxygen Delivery Method Room Air Intake Visit Reasons: Arthralgia Intake Note: Patient present follow up Arthralgia. no concerns Allergies shellfish derived Allergy (Mild, Verified 08/03/24 14:15) unknown [facility] Medical History (Updated 08/03/24 @ 21:12 by Dawson Nance MD) Tenosynovitis, de Quervain Osteoarthritis Neuropathy Limb pain Bursitis Backache Knee joint pain Surgical History (Updated 08/03/24 @ 14:17 by ANASTASIA Reilly) H/O eye surgery H/O left wrist surgery Family History (Updated 07/30/24 @ 09:56 by Tyoa Benton CMA) Father Brain cancer Social History (Updated 07/30/24 @ 09:59 by Toya Benton CMA) Comment: every 2 to 3 weeks, couple of beers and nips Patient Tobacco Use Status: Current everyday Tobacco user Physical Exam Vital Signs: Last Vital Signs Pulse 88 08/03/24 14:12 BP 122/84 08/03/24 14:12 Pulse Ox 98 08/03/24 14:12 Oxygen Delivery Method Room Air 08/03/24 14:12 BMI result Body Mass Index 23.1 Office Procedures AMB Joint Injection/Aspiration Joint Injection/Aspiration Details: Bilateral trochanteric bursa Prep: site was prepped using aseptic technique Injected into each site: 40 mg of, Kenalog, with 1 mL of and 1% plain lidocaine Procedure: The patient tolerated the procedure well. Postprocedure protocol was discussed with patient. Coding 16356 - Bilateral Large Joint Procedure code (CPT) selection complete AMB Joint Injection/Aspiration Coding 46454 - Bilateral Large Joint Procedure code (CPT) selection complete Office Meds lidocaine (PF) 10 mg/mL (1 %) injection solution Performing Provider: Dawson Nance MD Performing Location: [facility] [place] [facility] Administered by: Dawson Nance MD on 08/03/24 21:07 Dose Route Admin Location Dispensed Lot Number Expiration Date [facility] Metal [employer] Machine Operator 10 mg Infiltration 2 mL [id number] [facility] Kenalog 40 mg/mL suspension for injection Performing Provider: Dawson Nance MD Performing Location: [facility] Administered by: Dawson Nance MD on 08/03/24 21:07 Dose Route Admin Location Dispensed Lot Number Expiration Date [facility] [employer] 40 mg intrabursal 1 mL [id number] [employer] lidocaine (PF) 10 mg/mL (1 %) injection solution Performing Provider: Dawson Nance MD Performing Location: [facility] Administered by: Dawson Nance MD on 08/03/24 21:07 Dose Route Admin Location Dispensed Lot Number Expiration Date [facility] [employer] Sh[employer] Machine Operator 10 mg Infiltration 2 mL [id number] [facility] Kenalog 40 mg/mL suspension for injection Performing Provider: Dawson Nance MD Performing Location: [facility] Administered by: Dawson Nance MD on 08/03/24 21:07 Dose Route Admin Location Dispensed Lot Number Expiration Date [facility] Metal Sh[employer] Machine Operator 40 mg intrabursal 1 mL AP [id number] [employer] Assessment & Plan Assessment & Plan (1) Greater trochanteric bursitis of both hips: Comment: Uncontrolled pain despite using diclofenac gel 1% to affected area 3 to 4 times a day Code(s): M70.61 - Trochanteric bursitis, right hip; M70.62 - Trochanteric bursitis, left hip Category: Medical Plan: Patient received cortisone injection to bilateral trochanteric bursae Prescription for diclofenac gel 1% refilled Return to clinic in 6 months or sooner if needed Orders: Orders AMB Joint Injection/Aspiration Today M70.61 - Trochanteric bursitis, right hip, M70.62 - Trochanteric bursitis, left hip AMB Joint Injection/Aspiration Today M70.61 - Trochanteric bursitis, right hip, M70.62 - Trochanteric bursitis, left hip Medications: New lidocaine (PF) 10 mg Infiltration ONCE 1 mL 0RF M70.61 - Trochanteric bursitis, right hip, M70.62 - Trochanteric bursitis, left hip lidocaine (PF) 10 mg Infiltration ONCE 1 mL 0RF M70.61 - Trochanteric bursitis, right hip, M70.62 - Trochanteric bursitis, left hip Kenalog (triamcinolone acetonide) 40 mg intrabursal ONCE 1 mL 0RF NS M70.61 - Trochanteric bursitis, right hip, M70.62 - Trochanteric bursitis, left hip diclofenac sodium 1% (Arthritis Pain (diclofenac)) apply to affected area every 4-6 hours PRN 2 grams topical QID 100 grams 11RF Kenalog (triamcinolone acetonide) 40 mg intrabursal ONCE 1 mL 0RF NS M70.61 - Trochanteric bursitis, right hip, M70.62 - Trochanteric bursitis, left hip Coding Level of Care Code Est Pt Level 3 (77861) Complex EM visit Add On G2211 Diagnoses Greater trochanteric bursitis of both hips M70.61; M70.62 CPT Codes Coding - 34322 - Bilateral Large Joint: 22049 - Bilateral Large Joint ([id number]) Coding - 66070 - Bilateral Large Joint: 32018 - Bilateral Large Joint ([id number])
[2024-08-03 14:12] VITALS: BP 122/84; PULSE 88; O2SAT 98; BMI 23.1
--- OUTSIDE RECORDS SUMMARY | 2024-08-03 14:58 | XMS_ITS | Clinical Summary ---
Author Organization [facility] it Address [address] [place] [address] Care Team Providers Care Exit Booth Agent Name Role Phone Rowena Avila MD Primary Care Provider + Social History Tobacco Use Types Packs/Day Years Used Date Smoking Tobacco: Every Day Cigarettes Smokeless Tobacco: Never Alcohol Use Standard Drinks/Week Comments Never 0 (1 standard drink = 0.6 oz pur e alcohol) Comments Unknown Sex and Gender Information Value Date Recorded Sex Assigned at Not on file Legal Sex Female 11:29 AM EST Gender Identity Not on file Sexual Orientation Not on file Obstetrics History Last Filed Vital Signs Vital Sign Reading Time Taken Comments Blood Pressure - - Pulse - - Temperature - - Respiratory Rate - - Oxygen Saturation - - Inhaled Oxygen Concentration - - Weight 57.6 kg (127 lb) 10/26/2021 10:22 AM EDT Height 152.4 cm (5') 10/26/2021 10:22 AM EDT Body Mass Index 24.8 10/26/2021 10:22 AM EDT Plan of Treatment Health Maintenance Due Date Last Done Comments Breast Cancer Screening 1965 Pneumococcal Vaccine: Pediat rics (0 to 5 Years) and At-Risk Patients (6 to 64 Years) (1 of 2 - PCV) 1970 DTaP,Tdap,and Td Vaccines (1 - Tdap) 09/06/1983 Hepatitis A Vaccines (1 of 2 - Risk 2-dose series) 09/06/1983 Hepatitis B Vaccines (1 of 3 - 19+ 3-dose series) 09/06/1983 Cervical Cancer Screening: P ap Smear 1985 Zoster Vaccines (1 of 2) 2014 Cholesterol Screening (Lipid Panel) 05/21/2022 Colorectal Cancer Screening: Colonoscopy 05/21/2022 Depression Screening 05/21/2022 HIV Screening 05/21/2022 Hepatitis C Screening 05/21/2022 Social Influencers of Health Screening 05/21/2022 COVID-19 Vaccine (1 - 2023-2 5 season) 2024 Influenza Vaccine (#1) 2024 RSV Immunization Patients 60 + Years Old (1 - 1-dose 75+ series) 09/06/2039 HIB Vaccines Aged Out No longer eligi ble based on patient's age to complete this topic HPV Vaccines Aged Out No longer eligi ble based on patient's age to complete this topic IPV Vaccines Aged Out No longer eligi ble based on patient's age to complete this topic MMR Vaccines Aged Out No longer eligi ble based on patient's age to complete this topic Meningococcal ACWY Vaccine Aged Out N o longer eligible based on patient's age to complete this topic RSV Immunization Patients Un jerilyn 20 months Aged Out No longer eligible b ased on patient's age to complete this topic Varicella Vaccines Aged Out No longer eligible based on patient's age to complete this topic Care Teams Exit Booth Agent Relationship Specialty Start Date End Date Rowena Avila MD [address] [place] [address] PCP - General Internal Medicine 12/19/20
== END 2024-08-03 14:56 | disposition home or self-care (01) ==
PROVIDERS: PCP Family Medicine; Visit Provider Internal Medicine Rheumatology
DX: M70.61 Trochanteric bursitis, right hip (principal); M70.62 Trochanteric bursitis, left hip
CPT/HCPCS: 20610; 99213

== ENCOUNTER → 2024-08-03 13:57 | Outpatient (BNVA) | payer OTHER, SELFPAY | PROVIDERS: PCP Family Medicine; Visit Provider Internal Medicine Rheumatology | DX: M70.61 Trochanteric bursitis, right hip (principal); M70.62 Trochanteric bursitis, left hip | CPT/HCPCS: 20610; 99212; J2003; J3300 ==

== ENCOUNTER 2025-02-01 09:48 | Outpatient (AMB) | payer OTHER, SELFPAY ==
[2025-02-01 09:59] VITALS: BP 160/90; PULSE 76; O2SAT 96; BMI 22.8
--- NOTE | 2025-02-01 09:59 | MHC.OFFVIS ---
Vital Signs 02/01/25 09:59 Height 5 ft Weight 116 lb 13.52 oz BMI 22.8 BP 160/90 H Blood Pressure Location Rt brachial Position Sitting Pulse 76 Pulse Source Pulse Oximeter Pulse Oximetry (%) 96 Oxygen Delivery Method Room Air Intake Visit Reasons: Follow Up 6mo Intake Note: Patient present follow up Arthralgia. 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 She has lower back pain for 1-1.5 months. No radiculopathy. Spends a lot of time in chair. She is not as active as she used to be. She takes cyclobenzaprine 5mg qhs without benefit. SHe is not applying heat to back. Pain in hips started few weeks ago. [facility] Medical History (Updated 02/01/25 @ 20:58 by Dawson Nance MD) Tenosynovitis, de Quervain Osteoarthritis Neuropathy Limb pain Bursitis Backache Knee joint pain Surgical History (Updated 08/03/24 @ 14:17 by ANASTASIA Reilly) H/O eye surgery H/O left wrist surgery Family History (Updated 07/30/24 @ 09:56 by Toya Benton CMA) Father Brain cancer Social History (Updated 07/30/24 @ 09:59 by Toya Benton CMA) Comment: every 2 to 3 weeks, couple of beers and nips Patient Tobacco Use Status: Current everyday Tobacco user Physical Exam Vital Signs: Last Vital Signs Pulse 76 02/01/25 09:59 BP 160/90 H 02/01/25 09:59 Pulse Ox 96 02/01/25 09:59 Oxygen Delivery Method Room Air 02/01/25 09:59 BMI result Body Mass Index 22.8 Appearance: Alert. Oriented X3. No acute distress. Eyes: Pupils equal, round and reactive to light. ENT: Pharynx normal. Neck: Normal inspection. Neck supple. CVS: Normal heart rate and rhythm. Pulses normal. Respiratory: No respiratory distress. Breath sounds normal. Abdomen: Soft and nontender. Skin: Skin warm and dry. Normal skin color. Normal skin turgor. Extremities: No lower extremity edema. Moves all extremities against resistance. Neuro: No motor deficit. No sensory deficit. Cranial nerves 2-12 intact. Const Other: General: Comfortable Skin: No lesions seen MSK: Bilateral trochanteric bursa tenderness found. Good range of motion of bilateral hips. Tender to palpate lumbar spinous process and paraspinal muscles. Good lumbar flexion. Office Procedures AMB Joint Injection/Aspiration Joint Injection/Aspiration Details: Bilateral trochanteric bursa Prep: site was prepped using aseptic technique Injected into each site: 40 mg of, Kenalog, with 1 mL of and 1% plain lidocaine Procedure: Informed verbal consent was obtained. The patient tolerated the procedure well. Postprocedure protocol was discussed with patient. Coding 81025 - Bilateral Large Joint Procedure code (CPT) selection complete AMB Joint Injection/Aspiration Coding 64111 - Bilateral Large Joint Procedure code (CPT) selection complete Office Meds lidocaine (PF) 10 mg/mL (1 %) injection solution Performing Provider: Dawson Nance MD [place] [facility] Administered by: Dawson Nance MD on 02/01/25 20:54 Dose Route Admin Location Dispensed Lot Number Expiration Date [facility] Seaman Officer 10 mg Infiltration 2 mL [id number] [employer] Total Dispensed Waste 2 mL 50 % Kenalog 40 mg/mL suspension for injection Performing Provider: Dawson Nance MD Performing [place] [facility] [facility] Administered by: Dawson Nacne MD on 02/01/25 20:54 Dose Route Admin Location Dispensed Lot Number Expiration Date [facility] Seaman Officer 40 mg intrabursal 1 mL [id number] [employer] Total Dispensed Waste 1 mL 0 % lidocaine (PF) 10 mg/mL (1 %) injection solution Performing Provider: Dawson Nance MD Performing Location[place] [facility] [facility] Administered by: Dawson Nance MD on 02/01/25 20:54 Dose Route Admin Location Dispensed Lot Number Expiration Date [facility] Seaman Officer 10 mg Infiltration 2 mL [id number] [employer] Total Dispensed Waste 2 mL 50 % Kenalog 40 mg/mL suspension for injection Performing Provider: Dawson Nance MD Performing Location[place] [facility] [facility] Administered by: Dawson Nance MD on 02/01/25 20:54 Dose Route Admin Location Dispensed Lot Number Expiration Date [facility] Se[employer] Officer 40 mg intrabursal 1 mL [id number] [employer] Total Dispensed Waste 1 mL 0 % Assessment & Plan Assessment & Plan (1) Greater trochanteric bursitis of both hips: Comment: Uncontrolled pain. Last cortisone injection lasted 6 months. Code(s): M70.61 - Trochanteric bursitis, right hip; M70.62 - Trochanteric bursitis, left hip Category: Medical Plan: Patient received bilateral trochanteric bursa cortisone injections this visit Return to clinic in 3 months (2) Low back pain: Comment: Uncontrolled back pain with myofascial strain contributing. 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 and is unable to attend PT at this time I encouraged activity with stretching at home Return to clinic in 3 months Orders: Orders XR lumbar spine 2-3V Today M54.50 - Low back pain, unspecified AMB Joint Injection/Aspiration Today M70.61 - Trochanteric bursitis, right hip, M70.62 - Trochanteric bursitis, left hip AMB Joint Injection/Aspiration Today M70.61 - Trochanteric bursitis, right hip, M70.62 - Trochanteric bursitis, left hip Coding Level of Care Code Est Pt Level 4 (60425) Complex EM visit Add On G2211 Diagnoses Greater trochanteric bursitis of both hips M70.61; M70.62 Low back pain M54.50 CPT Codes Coding - 79143 - Bilateral Large Joint: 91503 - Bilateral Large Joint ([id number]) Coding - 61135 - Bilateral Large Joint: 52486 - Bilateral Large Joint ([id number])
--- OUTSIDE RECORDS SUMMARY | 2025-02-01 10:33 | XMS_ITS | Clinical Summary ---
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 Name Role Phone Rowena Avila MD Primary [...] Last Done Comments Breast Cancer Screening 1965 DTaP,Tdap,and Td Vaccines (1 - Tdap) 09/06/1983 Cervical Cancer Screening: P ap Smear 1985 Pneumococcal Vaccine: 50+ Ye ars (1 of 1 - PCV) 2014 Zoster Vaccines (1 of 2) 2014 COVID-19 Vaccine ( - 2023-2 5 season) 2024 Depression Screening 06/23/2024 Influenza Vaccine (#1) 2025 RSV Immunization Adult Patie nts (1 - 1-dose 75+ series) 09/06/2039 HIB Vaccines Aged Out No longer eligi ble based on patient's age to complete this topic HPV Vaccines Aged Out No longer eligi ble based on patient's age to complete this topic Hepatitis A Vaccines Aged Out No long er eligible based on patient's age to complete this topic Hepatitis B Vaccines Aged Out No long er eligible based on patient's age to complete this topic IPV Vaccines Aged Out No longer eligi ble based on patient's age to complete this topic MMR Vaccines Aged Out No longer eligi ble based on patient's age to complete this topic Meningococcal ACWY Vaccine Aged Out N o longer eligible based on patient's age to complete this topic Meningococcal B Vaccine Aged Out No l onger eligible based on patient's age to complete this topic RSV Immunization Patients Un jerilyn 20 months Aged Out No longer eligible b ased on patient's age to complete this topic Varicella Vaccines Aged Out No longer eligible based on patient's age to complete this topic Care Teams Glass Bulb Machine Adjuster Relationship Specialty Start Date End Date Rowena Avila MD [address] [place] [id number] PCP - General Internal Medicine 12/19/20
== END 2025-02-01 11:04 | disposition home or self-care (01) ==
LOC: HO.RHES 09:48
PROVIDERS: PCP Internal Medicine; Visit Provider Internal Medicine Rheumatology
DX: M70.61 Trochanteric bursitis, right hip (principal); M70.62 Trochanteric bursitis, left hip; M54.50 Low back pain, unspecified
CPT/HCPCS: 20610; 99213

== ENCOUNTER → 2025-02-01 09:48 | Outpatient (BNVA) | payer OTHER, SELFPAY | PROVIDERS: PCP Internal Medicine; Visit Provider Internal Medicine Rheumatology | DX: M70.61 Trochanteric bursitis, right hip (principal); M70.62 Trochanteric bursitis, left hip; M54.50 Low back pain, unspecified | CPT/HCPCS: 20610; 99212; J2003; J3300 ==